=== PATIENT | female | born 1985 | race Caucasian/White ===

== ENCOUNTER 2016-06-24 17:21 | Emergency (ER) | payer OTHER ==
[2016-06-24 18:13] LABS: SPECIFIC GRAVITY 1.015 (1.001-1.030); URINE BILIRUBIN NEGATIVE (NEGATIVE); URINE BLOOD NEGATIVE (NEGATIVE); URINE GLUCOSE (UA) NEGATIVE (NEGATIVE); URINE LEUKOCYTE ESTERASE NEGATIVE (NEGATIVE); URINE NITRITE NEGATIVE (NEGATIVE); URINE PROTEIN NEGATIVE (NEGATIVE); URINE UROBILINOGEN NORMAL (0-1 mg/dl)
[2016-06-24 18:16] LABS: HCG,QUALITATIVE URINE NEGATIVE; URINE APPEARANCE CLEAR; URINE COLOR YELLOW
[2016-06-24] MEDS ORDERED: METRONIDAZOLE 500 MG TABLET ONE (19:32)
[2016-06-24] MEDS ORDERED: DOXYCYCLINE HYCLATE 100 MG TABLET ONE (19:32)
[2016-06-24] MEDS ORDERED: AZITHROMYCIN 250 MG TABLET ONE (19:32)
[2016-06-27 15:49] LABS: CHLAMYDIA BD Negative (Negative); N.GONORRHOEAE BD Negative (Negative); SOURCE Vaginal (())
== END 2016-06-24 19:59 | disposition home or self-care (01) ==
LOC: ED 17:21
DX: N76.0 Acute vaginitis (principal); F17.210 Nicotine dependence, cigarettes, uncomplicated; Z97.5 Presence of (intrauterine) contraceptive device
CPT/HCPCS: 87491; 87591; 81025; 81003; 87210; 99283 ×2; A9270 ×3